=== PATIENT | male | born 1945 | race Two or more races ===

== ENCOUNTER 2017-08-18 10:43 | Inpatient (IN) | payer MEDICARE ==
[~2017-08-18] VITALS: Ht 177.8 cm; Wt 99.8 kg
[2017-08-18 11:02] VITALS: BP 101/64
[2017-08-18] MEDS ORDERED: Sodium Chloride 500ML 500 ML IV ONE (11:10)
[2017-08-18] MEDS ORDERED: Solu-MEDROL 125mg Inj IVP ONE (11:15)
[2017-08-18] MEDS: Albuterol ud Inhalation HHN SCH ×4 (11:27→12:43)
[2017-08-18] MEDS: Ipratropium 0.02% Inh Soln 2.5ml UD HHN SCH ×4 (11:27→12:43)
--- NOTE | 2017-08-18 12:07 | Diagnostic Imaging Report ---
Indication: Shortness of breath Technique: One view of the chest Comparison: none Findings: Body habitus somewhat limits evaluation. Heart is upper limits of normal in size. The lungs and pleural spaces are clear. The aorta is tortuous Impression: No acute process
[2017-08-18 12:19] LABS: ANION GAP 11 mmol/L (5-15); BLOOD UREA NITROGEN 26 mg/dL (7-18); CALCIUM 8.9 MG/DL (8.5-10.1); CARBON DIOXIDE 25 MMOL/L (21-32); CHLORIDE 101 MMOL/L (98-107); CREATININE 2.1 MG/DL (0.55-1.30); POTASSIUM 4.7 MMOL/L (3.5-5.1); SODIUM 137 MMOL/L (136-145)
[2017-08-18 12:34] LABS: ALANINE AMINOTRANSFERASE 32 U/L (12-78); ALBUMIN 4.1 G/DL (3.4-5.0); ALBUMIN/GLOBULIN RATIO 1.1 (1.0-2.7); ALKALINE PHOSPHATASE 48 U/L (46-116); ASPARTATE AMINO TRANSFERASE 39 U/L (15-37); BILIRUBIN,TOTAL 0.4 MG/DL (0.2-1.0); CKMB < 0.5 NG/ML (0.0-3.6); CREATINE KINASE 172 U/L (26-308)
[2017-08-18 13:01] LABS: BASOPHILS % (AUTO) 0.4 % (0.0-2.0); HEMATOCRIT 43.9 % (42.0-52.0); LYMPHOCYTES % (AUTO) 20.1 % (20.0-45.0); MEAN CORPUSCULAR VOLUME 93 FL (80-99); MONOCYTES % (AUTO) 9.7 % (1.0-10.0); NEUTROPHILS % (AUTO) 69.8 % (45.0-75.0); PLATELET COUNT 138 K/UL (150-450); RED CELL DISTRIBUTION WIDTH 11.2 % (11.6-14.8); WHITE BLOOD COUNT 7.4 K/UL (4.8-10.8)
[2017-08-18] MEDS ORDERED: Oseltamivir 75mg cap ORAL ONE (13:15)
[2017-08-18] MEDS ORDERED: Heparin 5000 units/ml inj IV ONE (14:15)
[2017-08-18] MEDS ORDERED: Heparin 25,000u/D5W 500ml 500 ML IV SCH (14:15)
--- NOTE | 2017-08-18 14:55 | Emergency Room Report ---
History of Present Illness General Chief Complaint: Upper Respiratory Illness Source: Patient Present Illness HPI 71-year-old male presents ED for evaluation. Patient referred by PMD Dr. Turk. Patient presenting with cough, productive x3 days. Shortness of breath. Low O2 saturations. Patient has history of asthma. Denies fevers or chills. States he feels weak. Denies chest pain. Denies sick contacts or recent travel. States he did not receive the vaccination this year. No other aggravating or relieving factors. Denies any other associated symptoms Allergies: Coded Allergies: No Known Allergies (Unverified , 08/18/17) Patient History Past Medical History: HTN, asthma Past Surgical History: none Pertinent Family History: none Social History: Denies: smoking, alcohol use, drug use Immunizations: UTD Reviewed Nursing Documentation: PMH: Agreed, PSxH: Agreed Nursing Documentation-PMH Past Medical History: No History, Except For Hx Hypertension: Yes Hx Pacemaker: No Hx Asthma: Yes Hx COPD: No Hx Diabetes: No Hx Cancer: No Hx Gastrointestinal Problems: No Hx Dialysis: No History Of Psychiatric Problem: No Hx Neurological Problems: No Hx Cerebrovascular Accident: No Hx Seizures: No Review of Systems All Other Systems: negative except mentioned in HPI Physical Exam Vital Signs Date Time Temp Pulse Resp B/P (MAP) Pulse Ox O2 Delivery O2 Flow Rate FiO2 08/18/17 10:46 100.0 70 16 101/64 92 Room Air 100.0 08/18/17 11:27 2.0 Sp02 EP Interpretation: reviewed, normal General Appearance: no apparent distress, alert, GCS 15, non-toxic Head: normocephalic, atraumatic Eyes: bilateral eye normal inspection, bilateral eye PERRL ENT: hearing grossly normal, normal pharynx, no angioedema, normal voice Neck: full range of motion, supple/symm/no masses Respiratory: chest non-tender, lungs clear, decreased breath sounds, speaking full sentences, wheezing Cardiovascular #1: regular rate, rhythm, no edema Cardiovascular #2: 2+ carotid (R), 2+ carotid (L), 2+ radial (R), 2+ radial (L) , 2+ dorsalis pedis (R), 2+ dorsalis pedis (L) Gastrointestinal: normal bowel sounds, non tender, soft, non-distended, no guarding, no rebound Rectal: deferred Genitourinary: normal inspection, no CVA tenderness Musculoskeletal: back normal, gait/station normal, normal range of motion, non- tender Neurologic: alert, oriented x3, responsive, motor strength/tone normal, sensory intact, speech normal Psychiatric: judgement/insight normal, memory normal, mood/affect normal, no suicidal/homicidal ideation Reflexes: 3+ bicep (R), 3+ bicep (L), 3+ tricep (R), 3+ tricep (L), 3+ knee (R) , 3+ knee (L) Skin: normal color, no rash, warm/dry, well hydrated Lymphatic: no adenopathy Medical Decision Making Diagnostic Impression: Primary Impression: Respiratory distress Additional Impressions: Influenza A Renal insufficiency ER Course Hospital Course 71-year-old M presenting to ED with respiratory distress, cough and crackles Differential diagnoses include: Pneumonia, CHF exacerbation, pneumothorax, fluid overload Clinical course Patient placed on stretcher. 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 After initial history and physical, I ordered nebulizer treatments. I ordered labs, IV fluids, EKG, chest x-ray, blood cultures, UA. Labs - no leukocytosis, hemoglobin/hematocrit stable, BUN/Cr elevated, lactate okay troponins negative, d-dimer elevated CXR - no acute infiltrate EKG - normal sinus rhythm no acute ischemic changes by me INfluenza A + ABG shows some hypoxia. However improved with breathing treatments Considered for PE given hypoxia and elevated d-dimer. However creatinine is elevated and unable to perform CT Angio CT scan ordered. Heparin bolus and drip started here. Tamiflu given Case discussed with Dr. Turk and he agreed to the patient to his service for further care and support I feel this is a highly complex case requiring extensive working including EKG/ Rhythm strip, Xray/CT/US, Blood/urine lab work, repeat exams while in ED, and administration of strong opiates/narcotics for pain control, admission to hospital or close patient follow up. Diagnosis - respiratory distress, influenza A, renal insuffiency Patient admitted to telemetry in serious condition Labs Test 08/18/17 11:50 08/18/17 12:50 08/18/17 12:58 Sodium Level 137 MMOL/L (136-145) Potassium Level 4.7 MMOL/L (3.5-5.1) Chloride Level 101 MMOL/L (98-107) Carbon Dioxide Level 25 MMOL/L (21-32) Anion Gap 11 mmol/L (5-15) Blood Urea Nitrogen 26 mg/dL (7-18) Creatinine 2.1 MG/DL (0.55-1.30) Estimat Glomerular Filtration Rate 31.4 mL/min (>60) Glucose Level 113 MG/DL (74-106) Lactic Acid Level 1.70 mmol/L (0.66-2.22) Calcium Level 8.9 MG/DL (8.5-10.1) Total Bilirubin 0.4 MG/DL (0.2-1.0) Aspartate Amino Transf (AST/SGOT) 39 U/L (15-37) Alanine Aminotransferase (ALT/SGPT) 32 U/L (12-78) Alkaline Phosphatase 48 U/L (46-116) Total Creatine Kinase 172 U/L (26-308) Creatine Kinase MB < 0.5 NG/ML (0.0-3.6) Creatine Kinase MB Relative Index Troponin I 0.000 ng/mL (0.000-0.056) Pro-B-Type Natriuretic Peptide 164 pg/mL (0-125) Total Protein 7.7 G/DL (6.4-8.2) Albumin 4.1 G/DL (3.4-5.0) Globulin 3.6 g/dL Albumin/Globulin Ratio 1.1 (1.0-2.7) White Blood Count 7.4 K/UL (4.8-10.8) Red Blood Count 4.70 M/UL (4.70-6.10) Hemoglobin 15.0 G/DL (14.2-18.0) Hematocrit 43.9 % (42.0-52.0) Mean Corpuscular Volume 93 FL (80-99) Mean Corpuscular Hemoglobin 31.8 PG (27.0-31.0) Mean Corpuscular Hemoglobin Concent 34.0 G/DL (32.0-36.0) Red Cell Distribution Width 11.2 % (11.6-14.8) Platelet Count 138 K/UL (150-450) Mean Platelet Volume 7.7 FL (6.5-10.1) Neutrophils (%) (Auto) 69.8 % (45.0-75.0) Lymphocytes (%) (Auto) 20.1 % (20.0-45.0) Monocytes (%) (Auto) 9.7 % (1.0-10.0) Eosinophils (%) (Auto) 0.0 % (0.0-3.0) Basophils (%) (Auto) 0.4 % (0.0-2.0) Prothrombin Time 10.5 SEC (9.30-11.50) Prothromb Time International Ratio 1.0 (0.9-1.1) Activated Partial Thromboplast Time 30 SEC (23-33) D-Dimer 0.58 mg/L FEU (0.00-0.49) Arterial Blood pH 7.378 (7.350-7.450) Arterial Blood Partial Pressure CO2 39.1 mmHg (35.0-45.0) Arterial Blood Partial Pressure O2 56.5 mmHg (75.0-100.0) Arterial Blood HCO3 22.5 mmol/L (22.0-26.0) Arterial Blood Oxygen Saturation 88.4 % (92.0-98.0) Arterial Blood Base Excess -2.3 Marshal Test Positive EKG Diagnostic Results Rate: normal Rhythm: NSR ST Segments: no acute changes ASA given to the pt in ED: No Rhythm Strip Diag. Results EP Interpretation: yes Rhythm: NSR, no PVC's, no ectopy Chest X-Ray Diagnostic Results Chest X-Ray Diagnostic Results : Chest X-Ray Ordered: Yes # of Views/Limited/Complete: 1 View Indication: Chest Pain EP Interpretation: Yes Interpretation: no consolidation, no effusion, no pneumothorax, no acute cardiopulmonary disease Impression: No acute disease Electronically Signed by: Electronically signed by Fadi Gregg MD Last Vital Signs Date Time Temp Pulse Resp B/P (MAP) Pulse Ox O2 Delivery O2 Flow Rate FiO2 08/18/17 12:44 76 16 96 Nasal Cannula 2.0 08/18/17 11:02 100.0 101/64 100.0 Status: improved Disposition: ADMITTED INPATIENT Condition: Serious Referrals: SOLE VILLAFUERTE (PCP) FADI GREGG M.D. Aug 18, 2017 14:54
[2017-08-18] MEDS ORDERED: UNOBMED (15:40)
--- NOTE | 2017-08-18 16:46 | Diagnostic Imaging Report ---
Indications: Shortness of breath Technique: IV administration 5.5 mCi 99m technetium macroaggregated albumin. Images obtained over the lungs in multiple projections. Previously, patient inhaled 40 mCi aerosolized 99M technetium DTPA. Images obtained over the lungs in multiple projections Comparison: Reference made to chest radiograph of earlier the same day Findings: There is slight heterogeneity of the tracer distribution demonstrated on the perfusion images. No segmental or subsegmental perfusion defects are demonstrated. No definite there is subtle abnormality. No evidence of ventilation/perfusion mismatch Impression: Findings deemed low probability for pulmonary embolus
[2017-08-18 18:15] VITALS: BP 105/62
[2017-08-18 20:00] VITALS: BP 101/62
[2017-08-18] MEDS ORDERED: Albuterol/Ipratropium 3ml neb HHN PRN (20:00)
[2017-08-18] MEDS: Heparin 5000 units/ml inj SUBQ SCH (21:00)
[2017-08-18] MEDS ORDERED: Zolpidem 5mg tab ORAL PRN (21:00)
[2017-08-18] MEDS: Atorvastatin 20mg tab ORAL SCH (21:02)
[2017-08-18] MEDS: Solu-MEDROL 125mg Inj IVP SCH (21:02)
[2017-08-18] MEDS: cefTRIAXone 1 GM in NS 55 ML IVPB SCH (21:04)
--- NOTE | 2017-08-18 23:46 | Consultation ---
DATE OF CONSULTATION: 08/18/2017 PULMONARY CONSULTATION REASON FOR CONSULTATION: Pneumonia, congestion, and hypoxemia. HISTORY OF PRESENT ILLNESS: This is a 71-year-old male who presents to my office. The patient was seen for hypoxemia down to an oxygen saturation of 85%. The patient presents with cough productive of sputum as well as chest discomfort over the past three days. The patient with a history of asthma. He is on medications. The patient was tested flu positive. Denies any fevers, but does admit to chills. Denies any ill contacts. Denies any recent travel. The patient did not receive vaccination over the past year. No aggravating factors. The patient's care discussed and reviewed with the ER physician. The patient did undergo a chest x-ray and is awaiting a V/Q scan. Chest x-ray appears to be negative for any acute process. The patient was started on antibiotics and now is to be admitted. PAST MEDICAL HISTORY: Notable for hypertension, hypercholesterolemia, allergic rhinitis, and asthma. PAST SURGICAL HISTORY: Negative. SOCIAL HISTORY: The patient is , two children, lives with his . The patient is retired. The patient was born in [place]. The patient does have a history of smoking, but quit back in 1989. The patient smoked for approximately 27 years when he did smoke. FAMILY HISTORY: Parents have , both from stroke. REVIEW OF SYSTEMS: Otherwise negative. PHYSICAL EXAMINATION: GENERAL: A well-developed male. The patient appears to be very toxic. VITAL SIGNS: On evaluation, the patient's vital signs in my office, oxygen saturation of 85%, presently 92%, T-max 100 degrees, blood pressure 132/80 . HEENT: Negative. Extraocular movements are grossly intact. NECK: Supple. LUNGS: With scattered wheezes. Moderate air entry. CARDIAC: S1 and S2, regular rhythm without murmurs, rubs, or gallops. ABDOMEN: Soft, nontender, and nondistended. EXTREMITIES: No cyanosis, clubbing, or edema. NEUROLOGIC: Grossly nonfocal. LABORATORY AND DIAGNOSTIC DATA: Reviewed. White count 7.4, hematocrit 43, and platelets are 138. Chemistries noted and reviewed. BUN 26 and creatinine 2.1. Troponin negative. BNP is 164. Arterial blood gases 7.37 on room air IMPRESSION: 1. Hypoxemia. 2. Negative chest x-ray. Consider possibly a pulmonary embolism. 3. Influenza positive. 4. Hypertension. 5. Hypercholesterolemia. RECOMMENDATIONS: Supportive care. Empiric heparin for now. Tamiflu for now. Resume inhalers and monitor clinically and finalize care pending reevaluation and treatment. Nba Turk M.D. DR: Cruz JOB#: [id number] CC: LON
[2017-08-19] VITALS (7 sets, daily range): BP systolic 90–120; BP diastolic 47–71
--- NOTE | 2017-08-19 08:00 | History and Physical Report ---
DATE OF ADMISSION: 08/18/2017 CHIEF COMPLAINT: Asthma exacerbation, hypoxemia, and influenza. HISTORY OF PRESENT ILLNESS: The patient is a pleasant 71-year-old male. He has history of hypertension, hyperlipidemia, and asthma. 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 He was hypoxic there and sent to the emergency room. On evaluation there, his blood gas did confirm his hypoxemia. He was influenza A positive. He was noted to be wheezing. He is now admitted for further evaluation. PAST MEDICAL HISTORY: As above. PAST SURGICAL HISTORY: None. CURRENT MEDICATIONS: Reconciled and reviewed. ALLERGIES: None. FAMILY HISTORY: None. SOCIAL HISTORY: Negative for tobacco, ethanol, or drugs. REVIEW OF SYSTEMS: GENERAL: Positive fevers, chills. No night sweats. HEENT: No headaches or visual changes. CARDIOPULMONARY: No chest pain. Positive shortness of breath. Positive wheezing. Positive cough. GASTROINTESTINAL: No nausea or vomiting. GENITOURINARY: No urgency or frequency. MUSCULOSKELETAL: No joint pain or swelling. NEUROLOGIC: No history of seizures. PHYSICAL EXAMINATION: VITAL SIGNS: Temperature 98 degrees, pulse 72, respirations 18, and blood pressure 105/62. GENERAL: The patient is well developed, in no apparent distress. The patient is able to speak in full sentences. NECK: Supple. No jugular venous distention. HEART: Regular rate and rhythm. LUNGS: Significant for wheezes on the right. ABDOMEN: Soft, nontender, nondistended. EXTREMITIES: Without clubbing or cyanosis. LABORATORY DATA: White count 7. On his ABG, the pO2 was 56. Troponin was negative. Lactic acid level was negative. Creatinine was 2.1. ASSESSMENT: This is a pleasant male admitted with complaints of influenza, asthma exacerbation, acute renal failure. He has history of hypertension and hyperlipidemia. PLAN: Cautious hydration. Intravenous steroids. Respiratory treatments. IV antibiotics. Treatment for flu. Pulmonary followup. Anirudh Quinn M.D. DR: Jc JOB#: [id number] CC:
[2017-08-19] MEDS: Propranolol 10mg tab ORAL SCH ×2 (08:30→21:11)
[2017-08-19] MEDS: Solu-MEDROL 125mg Inj IVP SCH ×2 (08:31→21:10)
[2017-08-19 08:54] LABS: ANION GAP 11 mmol/L (5-15); BLOOD UREA NITROGEN 28 mg/dL (7-18); CALCIUM 8.6 MG/DL (8.5-10.1); CARBON DIOXIDE 24 MMOL/L (21-32); CHLORIDE 105 MMOL/L (98-107); CREATININE 1.6 MG/DL (0.55-1.30); POTASSIUM 3.6 MMOL/L (3.5-5.1); SODIUM 140 MMOL/L (136-145)
[2017-08-19] MEDS: Breo Ellipta 200/25mcg-14 dose INH SCH (09:00)
[2017-08-19] MEDS: Heparin 5000 units/ml inj SUBQ SCH ×2 (09:00→21:00)
--- NOTE | 2017-08-19 09:15 | Pulmonology Progress Note ---
Assessment/Plan Assessment/Plan IMPRESSION: 1. Hypoxemia. 2. Negative chest x-ray. Consider possibly a pulmonary embolism. 3. Influenza positive. 4. Hypertension. 5. Hypercholesterolemia. PLAN tamiflu antibiotics hydration respiratory care dc planning if improved monitor oxygen levels Subjective Allergies: Coded Allergies: No Known Allergies (Unverified , 08/18/17) Subjective improved overall some cough minimal congestion Objective Last 24 Hour Vital Signs Date Time Temp Pulse Resp B/P (MAP) Pulse Ox O2 Delivery O2 Flow Rate FiO2 08/19/17 08:30 63 102/52 08/19/17 06:48 Nasal Cannula 2.0 28 08/19/17 06:48 82 20 Nasal Cannula 2.0 28 08/19/17 06:48 92 Nasal Cannula 2.0 28 08/19/17 04:00 75 08/19/17 04:00 97.9 79 19 109/66 92 Nasal Cannula 2.0 97.9 08/19/17 00:00 98.5 72 20 90/47 92 Nasal Cannula 2.0 98.5 08/19/17 00:00 73 08/18/17 20:00 97.0 70 20 101/62 88 Nasal Cannula 2.0 97.0 08/18/17 20:00 75 08/18/17 18:15 96.0 72 18 105/62 97 Nasal Cannula 2.0 96.0 08/18/17 12:44 76 16 96 Nasal Cannula 2.0 08/18/17 11:57 75 16 100 Nasal Cannula 2.0 08/18/17 11:29 66 17 Nasal Cannula 2.0 08/18/17 11:27 66 17 96 Nasal Cannula 2.0 08/18/17 11:03 70 16 Room Air 08/18/17 11:02 100.0 16 101/64 92 Room Air 100.0 08/18/17 10:46 100.0 70 16 101/64 92 Room Air 100.0 Objective GENERAL: A well-developed male. overall improved HEENT: Negative. Extraocular movements are grossly intact. NECK: Supple. LUNGS: With scattered wheezes- improved. Moderate air entry. CARDIAC: S1 and S2, regular rhythm without murmurs, rubs, or gallops. ABDOMEN: Soft, nontender, and nondistended. EXTREMITIES: No cyanosis, clubbing, or edema. NEUROLOGIC: Grossly nonfocal. Microbiology Date/Time Source Procedure Growth Status 08/18/17 11:50 Nasal Nares Influenza Types A,B Antigen (RAJAN) - Final Complete Laboratory Tests 08/18/17 11:50: Sodium Level 137, Potassium Level 4.7, Chloride Level 101, Carbon Dioxide Level 25, Anion Gap 11, Blood Urea Nitrogen 26H, Creatinine 2.1H, Estimat Glomerular Filtration Rate 31.4, Glucose Level 113H, Lactic Acid Level 1.70, Calcium Level 8.9, Total Bilirubin 0.4, Aspartate Amino Transf (AST/SGOT) 39H, Alanine Aminotransferase (ALT/SGPT) 32, Alkaline Phosphatase 48, Total Creatine Kinase 172, Creatine Kinase MB < 0.5, Creatine Kinase MB Relative Index , Troponin I 0.000, Pro-B-Type Natriuretic Peptide 164H, Total Protein 7.7, Albumin 4.1, Globulin 3.6, Albumin/Globulin Ratio 1.1 08/18/17 12:50: White Blood Count 7.4, Red Blood Count 4.70, Hemoglobin 15.0, Hematocrit 43.9, Mean Corpuscular Volume 93, Mean Corpuscular Hemoglobin 31.8H, Mean Corpuscular Hemoglobin Concent 34.0, Red Cell Distribution Width 11.2L, Platelet Count 138L , Mean Platelet Volume 7.7, Neutrophils (%) (Auto) 69.8, Lymphocytes (%) (Auto) 20.1, Monocytes (%) (Auto) 9.7, Eosinophils (%) (Auto) 0.0, Basophils (%) (Auto ) 0.4, Prothrombin Time 10.5, Prothromb Time International Ratio 1.0, Activated Partial Thromboplast Time 30, D-Dimer 0.58H 08/18/17 12:58: Arterial Blood pH 7.378, Arterial Blood Partial Pressure CO2 39.1, Arterial Blood Partial Pressure O2 56.5L, Arterial Blood HCO3 22.5, Arterial Blood Oxygen Saturation 88.4L, Arterial Blood Base Excess -2.3, Marshal Test Positive 08/19/17 00:55: Activated Partial Thromboplast Time 33 08/19/17 08:20: Sodium Level 140, Potassium Level 3.6, Chloride Level 105, Carbon Dioxide Level 24, Anion Gap 11, Blood Urea Nitrogen 28H, Creatinine 1.6H, Estimat Glomerular Filtration Rate 42.9, Glucose Level 249#H, Calcium Level 8.6 Current Medications Medications (Trade) Dose Ordered Sig/Terence Route PRN Reason Start Time Stop Time Status Last Admin Dose Admin Acetaminophen (Tylenol) 650 mg Q4H PRN ORAL Mild Pain/Temp > 100.5 08/18/17 20:00 09/17/17 19:59 Al Hydroxide/Mg Hydroxide (Mylanta) 30 ml DAILYPRN PRN ORAL Constipation 08/18/17 20:00 09/17/17 19:59 Albuterol/ Ipratropium (Albuterol/ Ipratropium) 3 ml Q4H PRN HHN Shortness of Breath 08/18/17 20:00 08/23/17 19:59 Amlodipine Besylate (Norvasc) 10 mg DAILY ORAL 08/19/17 09:00 09/18/17 08:59 Atorvastatin Calcium (Lipitor) 20 mg BEDTIME ORAL 08/18/17 21:00 09/17/17 20:59 08/18/17 21:02 Ceftriaxone Sodium 1 gm/ Sodium Chloride 55 ml @ 110 mls/hr Q24H IVPB 08/18/17 21:30 08/25/17 21:29 08/18/17 21:04 Fluticasone/ Vilanterol (Breo Ellipta 200/25) 1 puffs DAILY INH 08/19/17 09:00 09/18/17 08:59 08/19/17 09:00 Heparin Sodium (Porcine) (Heparin 5000 units/ml) 5,000 units EVERY 12 HOURS SUBQ 08/18/17 21:00 09/17/17 20:59 Lamotrigine (LaMICtal) 100 mg DAILY ORAL 08/19/17 09:00 09/18/17 08:59 08/19/17 08:31 Methylprednisolone Sodium Succinate (Solu-MEDROL) 60 mg EVERY 12 HOURS IVP 08/18/17 21:00 09/17/17 20:59 08/19/17 08:31 Mirtazapine (Remeron) 30 mg BEDTIME ORAL 08/18/17 21:00 09/17/17 20:59 08/18/17 21:03 Oseltamivir Phosphate (Tamiflu) 30 mg Q12HR ORAL 08/18/17 21:00 08/22/17 21:01 08/19/17 08:27 Pantoprazole (Protonix) 40 mg DAILY ORAL 08/19/17 09:00 09/18/17 08:59 08/19/17 08:31 Propranolol HCl (Inderal) 20 mg Q12HR ORAL 08/19/17 09:00 09/18/17 08:59 Zolpidem Tartrate (Ambien) 5 mg HSPRN PRN ORAL Insomnia 08/18/17 21:00 08/25/17 20:59 Zonisamide (Zonegran) 100 mg DAILY ORAL 08/19/17 09:00 09/18/17 08:59 08/19/17 08:27 JESS CESPEDES Aug 19, 2017 09:15
[2017-08-19] MEDS: Atorvastatin 20mg tab ORAL SCH (21:11)
[2017-08-19] MEDS: cefTRIAXone 1 GM in NS 55 ML IVPB SCH (21:11)
[2017-08-20 04:00] VITALS: BP 119/63
[2017-08-20 08:00] VITALS: BP 117/78
--- NOTE | 2017-08-20 08:25 | Pulmonology Progress Note ---
Assessment/Plan Assessment/Plan IMPRESSION: 1. Hypoxemia. 2. Negative chest x-ray. Consider possibly a pulmonary embolism. 3. Influenza positive. 4. Hypertension. 5. Hypercholesterolemia. PLAN tamiflu dc home home health recommended respiratory care dc planning with outpatient follow up impression, plan, and exam edited and reviewed in detail care discussed with RN Subjective ROS Limited/Unobtainable: Yes Allergies: Coded Allergies: No Known Allergies (Unverified , 08/18/17) Subjective improved overall and now off oxygen some cough improved congestion Objective Last 24 Hour Vital Signs Date Time Temp Pulse Resp B/P (MAP) Pulse Ox O2 Delivery O2 Flow Rate FiO2 08/20/17 04:00 97.5 71 20 119/63 93 Room Air 97.5 08/20/17 04:00 73 08/20/17 00:00 72 08/19/17 23:59 97.2 72 19 102/63 97 Room Air 97.2 08/19/17 21:11 90 120/70 08/19/17 20:00 90 08/19/17 20:00 97.9 90 20 120/71 92 Room Air 97.9 08/19/17 19:12 94 Room Air 08/19/17 19:12 Room Air 08/19/17 16:00 94 08/19/17 16:00 97.7 90 22 106/71 93 Nasal Cannula 2.0 97.7 08/19/17 12:00 80 08/19/17 12:00 97.5 77 18 105/58 90 Nasal Cannula 2.0 97.5 08/19/17 08:30 63 102/52 Intake and Output 08/19/17 08/20/17 19:00 07:00 Intake Total 700 ml 120 ml Balance 700 ml 120 ml Intake Oral 700 ml 120 ml # Voids 1 2 Objective GENERAL: A well-developed male. overall improved NAD HEENT: Negative. Extraocular movements are grossly intact. NECK: Supple. LUNGS: With minimal wheezes- improved. Moderate air entry. CARDIAC: S1 and S2, regular rhythm without murmurs, rubs, or gallops. ABDOMEN: Soft, nontender, and nondistended. EXTREMITIES: No cyanosis, clubbing, or edema. NEUROLOGIC: Grossly nonfocal. Microbiology Date/Time Source Procedure Growth Status 08/18/17 11:50 Blood Blood Culture - Preliminary NO GROWTH AFTER 24 HOURS Resulted 08/18/17 11:40 Blood Blood Culture - Preliminary NO GROWTH AFTER 24 HOURS Resulted 08/18/17 11:50 Nasal Nares Influenza Types A,B Antigen (RJAAN) - Final Complete Current Medications Medications (Trade) Dose Ordered Sig/Terence Route PRN Reason Start Time Stop Time Status Last Admin Dose Admin Acetaminophen (Tylenol) 650 mg Q4H PRN ORAL Mild Pain/Temp > 100.5 08/18/17 20:00 09/17/17 19:59 Al Hydroxide/Mg Hydroxide (Mylanta) 30 ml DAILYPRN PRN ORAL Constipation 08/18/17 20:00 09/17/17 19:59 Albuterol/ Ipratropium (Albuterol/ Ipratropium) 3 ml Q4H PRN HHN Shortness of Breath 08/18/17 20:00 08/23/17 19:59 Amlodipine Besylate (Norvasc) 10 mg DAILY ORAL 08/19/17 09:00 09/18/17 08:59 Atorvastatin Calcium (Lipitor) 20 mg BEDTIME ORAL 08/18/17 21:00 09/17/17 20:59 08/19/17 21:11 Ceftriaxone Sodium 1 gm/ Sodium Chloride 55 ml @ 110 mls/hr Q24H IVPB 08/18/17 21:30 08/25/17 21:29 08/19/17 21:11 Fluticasone/ Vilanterol (Breo Ellipta 200/25) 1 puffs DAILY INH 08/19/17 09:00 09/18/17 08:59 08/19/17 09:00 Heparin Sodium (Porcine) (Heparin 5000 units/ml) 5,000 units EVERY 12 HOURS SUBQ 08/19/17 21:00 09/18/17 20:59 Lamotrigine (LaMICtal) 100 mg DAILY ORAL 08/19/17 09:00 09/18/17 08:59 08/19/17 08:31 Methylprednisolone Sodium Succinate (Solu-MEDROL) 60 mg EVERY 12 HOURS IVP 08/18/17 21:00 09/17/17 20:59 08/19/17 21:10 Mirtazapine (Remeron) 30 mg BEDTIME ORAL 08/18/17 21:00 09/17/17 20:59 08/19/17 21:11 Oseltamivir Phosphate (Tamiflu) 30 mg Q12HR ORAL 08/18/17 21:00 08/22/17 21:01 08/19/17 21:24 Pantoprazole (Protonix) 40 mg DAILY ORAL 08/19/17 09:00 09/18/17 08:59 08/19/17 08:31 Propranolol HCl (Inderal) 20 mg Q12HR ORAL 08/19/17 09:00 09/18/17 08:59 08/19/17 21:11 Zolpidem Tartrate (Ambien) 5 mg HSPRN PRN ORAL Insomnia 08/18/17 21:00 08/25/17 20:59 Zonisamide (Zonegran) 100 mg DAILY ORAL 08/19/17 09:00 09/18/17 08:59 08/19/17 08:27 JESS CESPEDES Aug 20, 2017 08:25
[2017-08-20] MEDS: Solu-MEDROL 125mg Inj IVP SCH (08:36)
[2017-08-20] MEDS: Propranolol 10mg tab ORAL SCH (08:37)
[2017-08-20 08:38] VITALS: BP 117/63
[2017-08-20] MEDS: Breo Ellipta 200/25mcg-14 dose INH SCH (08:47)
[2017-08-20] MEDS: Heparin 5000 units/ml inj SUBQ SCH (08:49)
[2017-08-20] MEDS ORDERED: NS 275ml ONE (10:34)
[2017-08-20] MEDS ORDERED: Tubing IV Secondary IV ONE (10:34)
--- NOTE | 2017-08-20 16:00 | Discharge Summary ---
DATE OF ADMISSION: 08/18/2017 DATE OF DISCHARGE: 08/20/2017 ADMISSION DIAGNOSES: 1. Chronic obstructive pulmonary disease exacerbation. 2. Influenza. 3. Possible pneumonia. DISCHARGE DIAGNOSES: 1. Chronic obstructive pulmonary disease exacerbation. 2. Influenza. 3. Possible pneumonia. HOSPITAL COURSE: The patient was admitted with complaints of shortness of breath and hypoxemia secondary to influenza and chronic obstructive pulmonary disease exacerbation, received steroids, respiratory treatments, antibiotics and Tamiflu. He improved and after 24 to 48 hours, he was much better. He will be discharged home to complete his antibiotic therapy at home. DISCHARGE MEDICATIONS: Please see discharge medication list for discharge medications. DIET: Regular. ACTIVITIES: Ad-sumi. Anirudh Qunin M.D. DR: ALEJANDRO JOB#: [id number] CC:
--- NOTE | 2017-08-21 15:32 | Cardiology Report ---
APPROVED REPORT EKG Measurement Heart [id number] Normal sinus rhythm Possible Left atrial enlargement Possible Anterior infarct, age undetermined Abnormal ECG
--- NOTE | 2017-08-24 13:04 | Diagnostic Imaging Report ---
APPROVED REPORT CPT Code: 45809 Present Symptoms Comments: PAIN BILATERAL: Imaging reveals a patent deep venous system bilaterally. There is no evidence of thrombus within the femoral, popliteal or tibial segments. The greater saphenous veins are also within normal limits. Doppler indicates normal spontaneous flow within these segments.
== END 2017-08-20 10:35 | disposition home or self-care (01) | DRG 194 ==
LOC: EMR 11:45 → EDBEDREQ 12:33 → 2E 12:39 → EDBEDREQ 14:24 → 2E 16:10
DX: J10.1 Influenza due to other identified influenza virus with other respiratory manifestations (principal); N17.9 Acute kidney failure, unspecified; J44.1 Chronic obstructive pulmonary disease with (acute) exacerbation; I10 Essential (primary) hypertension; E78.00 Pure hypercholesterolemia, unspecified; R09.02 Hypoxemia; J18.9 Pneumonia, unspecified organism; Z87.891 Personal history of nicotine dependence
CPT/HCPCS: 36415; 36600; 71045; 78579; 78580; 80048; 80053; 82550; 82553; 82803; 83605; 83880; 84484; 85025; 85379; 85610; 85730; 86710; 87040; 93005; 93970; 94640; 94664; 94760; 99285; A9503